=== PATIENT | male | born 2000 | race American Indian/Alaskan Native ===

== ENCOUNTER 2021-01-14 18:55 | Emergency (ER) | payer MEDICAID ==
[2021-01-14 19:02] VITALS: BP 146/89
[2021-01-14] MEDS ORDERED: IBUPROFEN 800 MG TAB PO ONE (19:54)
--- NOTE | 2021-01-14 20:00 | Emergency Department Report ---
Upper Extremity - HPI Chief Complaint: Shoulder Injury Stated Complaint: LEFT ARM PAIN AND BRUISE Time Seen by Provider: 01/14/21 19:54 Upper Extremity: Left Shoulder Occurred When: 3 Days Mechanism: Unsure Severity: moderate Symptoms: Yes Pain with Movement, Yes Limited Range of Movement, Yes Swelling, Yes Bruising/Ecchymosis, No Deformity, No Numbness, No Weakness, No Laceration or Abrasion Other History: Patient states left anterior shoulder pain after lifting tables for Thanksgiving. Patient denies fall injury or other trauma. However there is bruising that is increasing over the past couple days. Patient denies numbness or tingling. Pain exacerbated by movement. There is no weakness. Patient arrived to ED via POV he is amatory with steady gait in no acute distress at this time. ED Review of Systems ROS: Stated complaint: LEFT ARM PAIN AND BRUISE Other details as noted in HPI Constitutional: denies: chills, fever Eyes: denies: eye pain, eye discharge, vision change ENT: denies: ear pain, throat pain Respiratory: denies: cough, shortness of breath, wheezing Cardiovascular: denies: chest pain, palpitations Endocrine: no symptoms reported Gastrointestinal: denies: abdominal pain, nausea, diarrhea Genitourinary: denies: urgency, dysuria Musculoskeletal: other Skin: denies: rash, lesions Neurological: denies: headache, weakness, paresthesias Psychiatric: denies: anxiety, depression Hematological/Lymphatic: denies: easy bleeding, easy bruising ED Past Medical Hx - Past Medical History Hx Psychiatric Treatment: Yes (ADHD) - Social History Smoking Status: Never Smoker Substance Use Type: None - Medications Home Medications: Home Medications Medication Instructions Recorded Confirmed Last Taken Type Methylphenidate HCl [Metadate CD] 40 mg PO QDAY 11/04/13 11/05/13 11/05/13 07:00 History cephALEXin [Keflex] 500 mg PO Q6H #40 capsule 11/04/13 11/05/13 11/05/13 07:00 Rx cloNIDine [Catapres] 0.1 mg PO QHS 11/04/13 11/05/13 11/03/13 21:00 History diphenhydrAMINE [Benadryl] 50 mg PO QHS 11/04/13 11/05/13 11/03/13 21:00 History risperiDONE [RisperDAL] 0.5 mg PO BID 11/04/13 11/05/13 11/05/13 07:00 History Naproxen 500 mg PO BID PRN #30 tablet 01/14/21 Unknown Rx Upper Extremity Exam - Exam General: Vital signs noted. No distress. Alert and acting appropriately. Head and Torso: No HEENT Abnormality, No Neck Tenderness, No Chest/Lungs Abnormality, No Abdominal Tenderness, No Back Tenderness Shoulder Exam: Yes Shoulder Tenderness (Anterior lateral ecchymosis and swelling.), No Clavicle Tenderness, No Normal Range of Motion in Shoulder, No Shoulder Deformity (Motion restricted by pain), No AC Joint Tenderness Arm Exam: No Arm/Humerus Tenderness, No Arm Deformity Elbow: Yes Normal Range of Motion in Elbow, No Elbow Tenderness, No Elbow Deformity Forearm: Yes Pain with Pronation, Yes Pain with Supination, No Forearm Tenderness, No Forearm Deformity Wrist: Yes Normal ROM in Wrist, No Wrist Tenderness, No Wrist Deformity, No Snuffbox Tenderness, No Pain with Axial Thumb Compression Hand: Yes Normal ROM in Digit(s), No Hand Tenderness, No Hand Deformity, No Digit Tenderness, No Digit(s) Deformity, No Tendon Dysfunction CMS Exam: Yes Normal Distal Pulses, Yes Normal Capillary Refill, Yes Normal Distal Sensation, No Broken Skin ED Course Vital Signs 01/14/21 18:59 Temperature 98.3 F Pulse Rate 103 H Respiratory 14 Rate Blood Pressure 146/89 O2 Sat by Pulse 100 Oximetry ED Medical Decision Making - Radiology Data Radiology results: report reviewed, image reviewed LEFT SHOULDER 3 VIEW(S) INDICATION / CLINICAL INFORMATION: shoulder pain swelling COMPARISON: None available. FINDINGS: BONES / JOINT(S): No acute fracture or subluxation. No significant arthritis. SOFT TISSUES: No significant abnormality. ADDITIONAL FINDINGS: None. Signer Name: Trace Pierre DO Signed: 01/14/2021 9:06 PM Workstation Name: [id number] - Medical Decision Making Range of motion is restricted by pain however distal pulses are intact ichthyology teacher are equal shoulder drop and open can intact. There is no AC joint tenderness. There is a 3 x 4 cm area of ecchymosis to left anterior lateral shoulder that is tender to touch. There is no fluctuance no fever. Distal pulses are intact ichthyology teacher are equal shoulder drop and an open candidate are intact. DOG BATHER less than 3 seconds bilateral. Is not likely abscess shoulder x-ray normal no fracture no dislocation no subluxation soft tissue abnormality Pain is improved at this time. plan. NSAIDs, moist heat therapy shoulder exercises. Follow-up with your primary care doctor in 2 to 3 days. Return to emergency department should symptoms worsen. Critical care attestation.: If time is entered above; I have spent that time in minutes in the direct care of this critically ill patient, excluding procedure time. ED Disposition Clinical Impression: Shoulder contusion Qualifiers: Encounter type: initial encounter Laterality: left Qualified Code(s): S40.012A - Contusion of left shoulder, initial encounter Left shoulder strain Qualifiers: Encounter type: initial encounter Qualified Code(s): S46.912A - Strain of unspecified muscle, fascia and tendon at shoulder and upper arm level, left arm, initial encounter Disposition: HOME / SELF CARE / HOMELESS Is pt being admited?: No Does the pt Need Aspirin: No Condition: Stable Instructions: Contusion Additional Instructions: Take medications as prescribed, use moist heat therapy to left shoulder as directed, shoulder exercises as directed, follow-up with primary care doctor in 2 to 3 days. Return to emergency department should symptoms worsen. Prescriptions: Naproxen 500 mg PO BID PRN #30 tablet PRN Reason: pain Referrals: PRIMARY CAREMD [Primary Care Provider] - 3-5 Days DEAN GALEAS MD [Staff Physician] - 3-5 Days Forms: Work/School Release Form(ED) Time of Disposition: 21:23
--- NOTE | 2021-01-14 21:10 | XRay Report ---
LEFT SHOULDER 3 VIEW(S) INDICATION / CLINICAL INFORMATION: shoulder pain swelling COMPARISON: None available. FINDINGS: BONES / JOINT(S): No acute fracture or subluxation. No significant arthritis. SOFT TISSUES: No significant abnormality. ADDITIONAL FINDINGS: None. Signer Name: Trace Pierre DO Signed: 01/14/2021 9:06 PM Workstation Name: [id number]
== END 2021-01-14 21:33 | disposition home or self-care (01) ==
LOC: ED 18:55
DX: S46.912A Strain of unspecified muscle, fascia and tendon at shoulder and upper arm level, left arm, initial encounter (principal); X58.XXXA Exposure to other specified factors, initial encounter; Y92.89 Other specified places as the place of occurrence of the external cause; Y93.89 Activity, other specified; Y99.8 Other external cause status
CPT/HCPCS: 99283